=== PATIENT | female | born 1945 | race Caucasian/White ===

== ENCOUNTER 2019-05-13 11:31 | Outpatient (CLI) | payer MEDICARE, BC ==
--- NOTE | 2019-05-13 12:04 | ULT ---
EXAM: US Gallbladder RUQ CLINICAL HISTORY: Right upper quadrant pain x2 days. COMPARISON: None. FINDINGS: Pancreas: Obscured by bowel gas Liver:Increased echogenicity of the liver may be due to hepatic steatosis or hepatocellular disease. Limited evaluation for hepatic masses and intrahepatic biliary dilatation. Right hepatic lobe measures 14.8 cm Portal vein: Patent with appropriate directional flow Gallbladder: Echogenic focus with shadowing, compatible with a gallstone. Gallbladder wall is thicken ed measuring 0.56 cm. No pericholecystic fluid. Baez's sign:Negative Bile ducts: Obscured due to bowel gas Right kidney: No hydronephrosis. Right kidney measures 10.4 cm cm in length. IMPRESSION: 1. Increased echogenicity of the liver which may be due to hepatic steatosis or hepatocellular diseas e. If there is concern for hepatic masses, liver mass protocol CT can be performed 2. Cholelithiasis with gallbladder wall thickening. Despite a negative Baez's sign, the possibility of cholecystitis cannot be excluded. HIDA scan is recommended. 2. Obscured common bile duct
== END 2019-05-13 11:32 | disposition home or self-care (01) ==
LOC: ULT 11:31
PROVIDERS: ATTEND Physician Assistant
DX: R10.11 Right upper quadrant pain (principal); K80.20 Calculus of gallbladder without cholecystitis without obstruction; K82.8 Other specified diseases of gallbladder; K83.8 Other specified diseases of biliary tract
CPT/HCPCS: 76705

== ENCOUNTER 2019-05-13 12:28 | Inpatient (IN) | payer MEDICARE, BC ==
[2019-05-13 13:26] LABS: #Eosinphils 0.1 thou/uL (0.0-0.7); #Lymphocytes 1.1 thou/uL (1.20-3.40); #Monocytes 0.8 thou/uL (0.11-0.59); #Neutrophils 11.3 thou/uL (1.40-6.50); %Basophils 0.1 % (0.0-1.0); %Eosinophils 0.4 % (0.0-10.0); %Lymphocytes 8.5 % (21.0-51.0); %Monocytes 6.1 % (0.0-10.0); %Neutrophils 84.8 % (42.0-75.0); Hemoglobin 15.2 g/dL (12.0-16.0); Mean Corpuscular HGB CONC 33.6 g/dL (32.0-36.0); Mean Corpuscular Hemoglobin 31.1 pg (27.0-31.0); Mean Corpuscular Volume 92.5 fL (78.0-98.0); Mean Platelet Volume 6.6 fL (7.4-10.4); Platelet Count 394 thou/uL (130-400); RBC Distribution Width 13.5 % (11.5-14.5); Red Blood Cell (RBC) Count 4.87 mill/uL (4.20-5.40); White Blood Cell (WBC) Count 13.3 thou/uL (4.8-10.8)
[2019-05-13 13:40] LABS: ALT (SGPT) 8 U/L (8-55); AST (SGOT) 11 U/L (5-34); Albumin 4.3 g/dL (3.4-4.8); Alkaline Phosphatase 100 U/L (40-150); Anion Gap 13 mmol/L (10-20); BUN (Urea Nitrogen) 9 mg/dL (9.8-20.1); Bilirubin, Total 0.8 mg/dL (0.2-1.2); Calc. Creatinine Clearance 0 mL/min (70-130); Carbon Dioxide 31 mmol/L (23-31); Chloride 89 mmol/L (98-107); Estimated GFR-MDRD 56; Globulin 2.9 g/dL (2.4-3.5); Glucose 147 mg/dL (83-110); Potassium 3.9 mmol/L (3.5-5.1); Protein, Total 7.2 g/dL (6.0-8.3); Sodium 129 mmol/L (136-145)
[2019-05-13 13:42] LABS: Calcium 12.6 mg/dL (7.8-10.44)
--- NOTE | 2019-05-13 16:36 | RAD ---
XR Chest 1 View Portable History: High white blood count Comparison: None. Findings: The lungs are clear. No pneumothorax or effusion. Cardiac silhouette and mediastinal contou rs are within normal limits. Impression: No acute intrathoracic abnormality.
[2019-05-13 19:30] VITALS: BMI 31.9
[2019-05-13] MEDS: Sodium Chloride 0.9% 1,000 ML IV SCH (19:47)
[2019-05-13] MEDS: Sodium Chloride 1 GM TAB PO SCH (20:09)
[2019-05-13] MEDS ORDERED: diphenhydrAMINE 25 MG CAP PO SCH (21:00)
[2019-05-13] MEDS ORDERED: Acetaminophen 325 MG TAB PO PRN (22:58)
[2019-05-13] MEDS ORDERED: Ondansetron ODT 4 MG TAB PO PRN (22:58)
--- NOTE | 2019-05-13 23:08 | PDOC.EVN ---
Event Note - Event Note Event Note: H&P dictated [id number]
--- NOTE | 2019-05-14 03:22 | HP ---
CHIEF COMPLAINT: Abnormal labs. HISTORY OF PRESENT ILLNESS: Ms. Pike is a 74-year-old female with past medical history of hypertension, hyperlipidemia, presented to the emergency room with abdominal pain for the last 2 days. The patient also describes fullness. The patient was sent by PCP because of elevated WBC count and calcium level. The patient reported cold sweats and tiredness. The patient's last bowel movement was 2 days ago. Workup in the emergency room, the patient was found to be hypercalcemic with a calcium level of 12.6, also she was found to have elevated WBC count of 15.3. As per the patient, she had an ultrasound done at an outside facility earlier today and was told that she had cholelithiasis. The patient has been admitted to the hospital for further management. PAST MEDICAL HISTORY: 1. Hypertension. 2. Hyperlipidemia. PAST SURGICAL HISTORY: Reviewed as elsewhere in the chart. SOCIAL HISTORY: Denies smoking, alcohol drinking, or drug abuse. HOME MEDICATIONS: Please see home medication reconciliation form for updated medications. ALLERGIES: ALLERGIC TO SHELLFISH AND IODINE. REVIEW OF SYSTEMS: Review of 14 systems is negative except what is mentioned in history of present illness. PHYSICAL EXAMINATION: GENERAL: The patient is awake, alert, does not appear to be in acute distress. VITAL SIGNS: Blood pressure , pulse is 82, respiratory rate is 16, pulse oximetry 97% on room air. HEAD AND NECK: Normocephalic, atraumatic. Neck is supple. No JVD. CHEST: Clear. Bilateral air entry. HEART: S1, S2. Regular. ABDOMEN: Soft with mild epigastric tenderness. Bowel sounds present. NEUROLOGIC: Awake, alert, oriented x3. PSYCH: Normal mood. EXTREMITIES: No clubbing or cyanosis. LABORATORY DATA: As mentioned above in the history of present illness. Chest x-ray, no acute findings. ASSESSMENT AND PLAN: A 74-year-old female who presented to her primary care office, she was seen by PA and had lab work done, was found to be hypercalcemic, elevated WBC count, also imaging studies were done and it was reported that she had ? cholelithiasis. 1. Acute hyperglycemia. 2. Abdominal pain. 3. Cholelithiasis ? symptomatic ? 4. Hypertension. 5. Hyperlipidemia. PLAN: 1. We will admit. 2. IV fluid hydration. 3. Monitor calcium levels, may need further workup regarding the etiology of hypercalcemia, which can be done as an outpatient. 4. If her abdominal pain persists, may need to consult Surgery for evaluation of symptomatic cholelithiasis. 5. Try to get the report of the ultrasound which was done in outside facility. 6. Reconcile home medications. 7. DVT prophylaxis, early ambulation/SCD. 8. Expected length of stay at least 1 midnight if patient is stable. Job ID: [id number]
[2019-05-14 05:41] LABS: #Basophils 0.1 thou/uL (0.0-0.2); #Eosinphils 0.2 thou/uL (0.0-0.7); #Lymphocytes 1.3 thou/uL (1.20-3.40); #Monocytes 1.3 thou/uL (0.11-0.59); #Neutrophils 8.3 thou/uL (1.40-6.50); %Basophils 0.5 % (0.0-1.0); %Eosinophils 1.8 % (0.0-10.0); %Lymphocytes 11.5 % (21.0-51.0); %Monocytes 11.7 % (0.0-10.0); %Neutrophils 74.4 % (42.0-75.0); Hemoglobin 12.8 g/dL (12.0-16.0); Mean Corpuscular HGB CONC 34.2 g/dL (32.0-36.0); Mean Corpuscular Hemoglobin 31.9 pg (27.0-31.0); Mean Corpuscular Volume 93.1 fL (78.0-98.0); Mean Platelet Volume 6.4 fL (7.4-10.4); Platelet Count 308 thou/uL (130-400); RBC Distribution Width 13.5 % (11.5-14.5); Red Blood Cell (RBC) Count 4.01 mill/uL (4.20-5.40); White Blood Cell (WBC) Count 11.1 thou/uL (4.8-10.8)
[2019-05-14] MEDS: Sodium Chloride 0.9% 1,000 ML IV SCH ×2 (05:41→11:16)
[2019-05-14 06:15] LABS: ALT (SGPT) 7 U/L (8-55); AST (SGOT) 9 U/L (5-34); Albumin 3.4 g/dL (3.4-4.8); Alkaline Phosphatase 72 U/L (40-150); Anion Gap 10 mmol/L (10-20); BUN (Urea Nitrogen) 9 mg/dL (9.8-20.1); Bilirubin, Total 0.6 mg/dL (0.2-1.2); Calc. Creatinine Clearance 96 mL/min (70-130); Calcium 9.8 mg/dL (7.8-10.44); Carbon Dioxide 27 mmol/L (23-31); Chloride 97 mmol/L (98-107); Estimated GFR-MDRD 79; Globulin 2.2 g/dL (2.4-3.5); Glucose 86 mg/dL (83-110); Potassium 3.6 mmol/L (3.5-5.1); Protein, Total 5.6 g/dL (6.0-8.3); Sodium 130 mmol/L (136-145)
[2019-05-14] MEDS: Sodium Chloride 1 GM TAB PO SCH ×3 (08:27→20:13)
[2019-05-14] MEDS: Famotidine/PF 20 mg/2ml Vial SLOW IVP SCH ×2 (08:27→19:24)
[2019-05-14] MEDS ORDERED: Prevnar 13-Val Conj/PF 0.5 ML SYRINGE IM ONE (09:00)
[2019-05-14] MEDS ORDERED: cefOXitin 2 GM in Sodium Chloride 0.9% 100 ML IVPB SCH (10:15)
--- NOTE | 2019-05-14 13:19 | PDOC.HOSPP ---
- Subjective Encounter Date: 05/14/19 Encounter Time: 09:45 Subjective: has right upper quadrant pain, no nausea or chest pain - Objective Vital Signs & Weight: Vital Signs (12 hours) Temp Pulse Resp BP BP Pulse Ox 05/14/19 12:00 98.2 F 84 16 132/68 96 05/14/19 08:00 98 05/14/19 07:53 98.7 F 83 18 108/66 05/14/19 04:00 98.3 F 76 16 102/55 L 92 L Weight Weight 192 lb I&O: 05/13/19 05/14/19 05/15/19 06:59 06:59 06:59 Intake Total 1120 200 Balance 1120 200 Result Diagrams: 05/14/19 05:16 05/14/19 05:16 Hospitalist ROS - Medication Medications: Active Medications Generic Name Dose Route Start Last Admin Trade Name Freq PRN Reason Stop Dose Admin Famotidine 20 mg 05/14/19 09:00 05/14/19 08:27 Pepcid SLOW IVP 20 mg Q12HR LETTY Administration Sodium Chloride 1,000 mls @ 125 mls/hr 05/14/19 10:15 05/14/19 11:16 Normal Saline 0.9% IV Not Given .Q8H LETTY Sodium Chloride 1 gm 05/13/19 21:00 05/14/19 08:27 Sodium Chloride PO 1 gm TID LETTY Administration - Exam General Appearance: NAD, awake alert Eye: PERRL, anicteric sclera ENT: no oropharyngeal lesions, moist mucosa Neck: supple, no JVD Heart: RRR, no murmur Respiratory: no wheezes, no rales Gastrointestinal: soft, non-distended, normal bowel sounds, tender to palpation Extremities: no cyanosis, no edema Neurological: cranial nerve grossly intact, no focal deficits Psychiatric: normal affect, A&O x 3 Hosp A/P (1) Acute calculous cholecystitis Code(s): K80.00 - CALCULUS OF GALLBLADDER W ACUTE CHOLECYST W/O OBSTRUCTION Status: Acute (2) Hypercalcemia Code(s): E83.52 - HYPERCALCEMIA Status: Resolved (3) Dehydration Code(s): E86.0 - DEHYDRATION Status: Resolved (4) Hyponatremia Code(s): E87.1 - HYPO-OSMOLALITY AND HYPONATREMIA Status: Acute (5) HTN (hypertension) Code(s): I10 - ESSENTIAL (PRIMARY) HYPERTENSION Status: Chronic Qualifiers: Hypertension type: essential hypertension Qualified Code(s): I10 - Essential (primary) hypertension (6) Dyslipidemia Code(s): E78.5 - HYPERLIPIDEMIA, UNSPECIFIED Status: Chronic - Plan hemostable is npo for jerald singh today by gentle iv hydration electrolytes are stable may tx to medsurg floor post op she ambulates by herself, can climb 2 flight of stairs with min sob but no chest pain
[2019-05-14] MEDS ORDERED: Glycopyrrolate 0.2 MG/ML 5 ML SYRINGE ONE (14:17)
[2019-05-14] MEDS ORDERED: ePHEDrine 50 MG/ML VIAL ONE (14:17)
[2019-05-14] MEDS ORDERED: Ketorolac Tromethamine 30 MG/ML VIAL ONE (14:17)
[2019-05-14] MEDS ORDERED: Ondansetron PF 4 MG/2 ML Vial ONE (14:17)
[2019-05-14] MEDS ORDERED: PROPOFOL 200 MG/20 ML VIAL ONE (14:17)
[2019-05-14] MEDS ORDERED: PHENYLEPHRINE-NS 100 MCG/ML 10 ML SYRINGE ONE (14:17)
[2019-05-14] MEDS ORDERED: Rocuronium Bromide 10 MG/ML (10ML VIAL) ONE (14:17)
[2019-05-14] MEDS ORDERED: Lidocaine 1% PF 5 ML VIAL ONE (14:17)
[2019-05-14] MEDS ORDERED: Dexamethasone 20 MG/5 ML VIAL ONE (14:17)
--- NOTE | 2019-05-14 14:56 | CON ---
DATE OF CONSULTATION: CHIEF COMPLAINT: Right upper quadrant abdominal pain. HISTORY OF PRESENT ILLNESS: This is a 74-year-old female, who reports a 2-day history of midepigastric and right upper quadrant pain. No radiation. She was found to have elevated white blood count and an ultrasound showing gallstones. The also found that her calcium was elevated, but it is back down to normal. She denies nausea or vomiting. She was having some constipation, but she had a small bowel movement this morning. No previous episodes. PAST MEDICAL HISTORY: Hypertension, hyperlipidemia. PAST SURGICAL HISTORY: Hysterectomy, appendectomy. MEDICATIONS: 1. Lovastatin. 2. Hydrochlorothiazide. 3. Multivitamins. 4. Aspirin. ALLERGIES: SHE IS ALLERGIC TO SHELLFISH AND IODINE. SOCIAL HISTORY: She is single, retired. No tobacco or alcohol. FAMILY HISTORY: Noncontributory. PHYSICAL EXAMINATION: VITAL SIGNS: Temperature 98.7, pulse 83, and blood pressure 108/66. GENERAL: She is awake, alert, in minimal distress. HEENT: No jaundice. LUNGS: Clear. HEART: Regular rate and rhythm. ABDOMEN: Soft. She is tender in the right upper quadrant. Positive Baez's sign. EXTREMITIES: Unremarkable. LABORATORY DATA: Her white count today is 11.1, H and H of 12 and 37, platelet count 308. Electrolytes; her sodium is 130, chloride 97, BUN 9, calcium is normal at 9.8. Her LFTs are normal. Ultrasound shows an echogenic foci in the neck of the gallbladder consistent with a gallstone with wall thickening, no pericholecystic fluid. ASSESSMENT: Acute cholecystitis. PLAN: Laparoscopic cholecystectomy. CONSENT: I have discussed planned procedure as well as risk of bleeding, infection, injury to bile duct, injury to bowel, need to open. She understands, gives informed consent. Job ID: [id number]
[2019-05-14] MEDS ORDERED: cefOXitin 2 GM VIAL ONE (15:11)
[2019-05-14] MEDS ORDERED: Sodium Chloride 0.9% 100 ML ONE (15:11)
[2019-05-14] MEDS ORDERED: Bupivacaine/Epinephrine 0.25% 30 ML VIAL ONE (16:10)
[2019-05-14] MEDS ORDERED: Fentanyl 100 MCG/2 ML VIAL ONE ×3 (16:19→18:02)
[2019-05-14] MEDS ORDERED: Promethazine HCl 25 MG/ML VIAL IM PRN ×3 (16:57→17:40)
[2019-05-14] MEDS ORDERED: Promethazine HCl 25 MG/ML VIAL SLOW IVP PRN ×2 (16:57→17:40)
[2019-05-14] MEDS ORDERED: Ondansetron HCl/PF 4 MG/2 ML Vial IVP PRN ×2 (16:57→17:40)
[2019-05-14] MEDS ORDERED: Morphine 4 MG/ML VIAL SLOW IVP PRN (17:23)
[2019-05-14] MEDS ORDERED: hydrALAZINE 20 MG/ML VIAL SLOW IVP PRN (17:23)
[2019-05-14] MEDS ORDERED: Dextrose 5% in Water 1,000 ML IV PRN (17:23)
[2019-05-14] MEDS ORDERED: Dextrose 50% Abboject 50 ML SYRINGE SLOW IVP PRN (17:23)
[2019-05-14] MEDS ORDERED: Calcium Carbonate 500 MG ChewTAB PO PRN (17:23)
[2019-05-14] MEDS ORDERED: Ondansetron PF 4 MG/2 ML Vial IVP PRN (17:23)
[2019-05-14] MEDS ORDERED: Morphine 2 MG/ML SYRINGE SLOW IVP PRN (17:23)
[2019-05-14] MEDS ORDERED: Mag-Al 1200 mg/1200 mg/30 ML UDCUP PO PRN (17:23)
[2019-05-14] MEDS ORDERED: HYDROcodone/Acetaminophen 10/325 mg Tablet PO PRN (17:23)
[2019-05-14] MEDS: Ketorolac Tromethamine 30 MG/ML VIAL IVP SCH (18:36)
[2019-05-14] MEDS: HYDROcodone/Acetaminophen 10/325 mg Tablet PO PRN (19:30)
[2019-05-14] MEDS: Famotidine 20 MG TAB PO SCH (20:13)
[2019-05-14] MEDS ORDERED: Famotidine/PF 20 mg/2ml Vial SLOW IVP SCH (21:00)
[2019-05-14] MEDS: cefOXitin 2 GM in Sodium Chloride 0.9% 100 ML IVPB SCH (23:59)
[2019-05-15 05:21] LABS: #Lymphocytes 0.6 thou/uL (1.20-3.40); #Monocytes 0.6 thou/uL (0.11-0.59); #Neutrophils 11.3 thou/uL (1.40-6.50); %Basophils 0.1 % (0.0-1.0); %Eosinophils 0.1 % (0.0-10.0); %Neutrophils 89.8 % (42.0-75.0); Hemoglobin 12.8 g/dL (12.0-16.0); Mean Corpuscular HGB CONC 34.2 g/dL (32.0-36.0); Mean Corpuscular Hemoglobin 32.2 pg (27.0-31.0); Mean Corpuscular Volume 94.1 fL (78.0-98.0); Mean Platelet Volume 6.7 fL (7.4-10.4); Platelet Count 331 thou/uL (130-400); RBC Distribution Width 13.5 % (11.5-14.5); Red Blood Cell (RBC) Count 3.97 mill/uL (4.20-5.40); White Blood Cell (WBC) Count 12.5 thou/uL (4.8-10.8)
[2019-05-15 05:55] LABS: ALT (SGPT) 33 U/L (8-55); AST (SGOT) 43 U/L (5-34); Albumin 3.4 g/dL (3.4-4.8); Alkaline Phosphatase 69 U/L (40-150); Anion Gap 10 mmol/L (10-20); BUN (Urea Nitrogen) 11 mg/dL (9.8-20.1); Bilirubin, Total 0.4 mg/dL (0.2-1.2); Calc. Creatinine Clearance 84 mL/min (70-130); Calcium 9.2 mg/dL (7.8-10.44); Carbon Dioxide 27 mmol/L (23-31); Chloride 99 mmol/L (98-107); Estimated GFR-MDRD 68; Globulin 2.3 g/dL (2.4-3.5); Glucose 127 mg/dL (83-110); Lipase Less than 4 U/L (8-78); Potassium 4.2 mmol/L (3.5-5.1); Protein, Total 5.7 g/dL (6.0-8.3); Sodium 132 mmol/L (136-145)
[2019-05-15] MEDS: Ketorolac Tromethamine 30 MG/ML VIAL IVP SCH ×4 (06:25→17:44)
[2019-05-15] MEDS: Sodium Chloride 0.9% 1,000 ML IV SCH ×3 (06:26→23:38)
[2019-05-15] MEDS: cefOXitin 2 GM in Sodium Chloride 0.9% 100 ML IVPB SCH ×2 (06:26→16:26)
[2019-05-15] MEDS: Famotidine 20 MG TAB PO SCH ×2 (09:08→20:40)
[2019-05-15] MEDS: Enoxaparin Sodium 40 MG/0.4 ML SYRINGE SC SCH (09:08)
[2019-05-15] MEDS: Sodium Chloride 1 GM TAB PO SCH (09:09)
--- NOTE | 2019-05-15 09:47 | PRG ---
DATE OF SERVICE: 05/15/2019 SUBJECTIVE: The patient says she feels better. She is tolerating full liquids well. Pain is improved. No nausea or vomiting. OBJECTIVE: VITAL SIGNS: On exam, temperature 98, pulse 72, and blood pressure 102/71. GENERAL: She looks good. ABDOMEN: Soft and nondistended. Drain output is 70 mL from the AUDREY. It is serosanguineous. DIAGNOSTIC DATA: The cultures show white cells, no organisms, still pending. Laboratory; white count is 12.5, H and H of 12 and 37, and platelet count 331. Electrolytes; glucose is 127, AST of 43. Otherwise, LFTs okay. ASSESSMENT: Acute cholecystitis. PLAN: Continue IV antibiotics. Probably can be discharged tomorrow. Job ID: [id number]
--- NOTE | 2019-05-15 12:19 | PDOC.HOSPP ---
- Subjective Encounter Date: 05/15/19 Encounter Time: 09:45 Subjective: no nausea or vomiting, is tolerating liq diet, wants solid food is wanting to amb in hallway, RN will assist her shortly has mild surg abd site pain - Objective Vital Signs & Weight: Vital Signs (12 hours) Temp Pulse Resp BP Pulse Ox 05/15/19 11:22 97.8 F 78 18 111/75 94 L 05/15/19 08:00 93 L 05/15/19 07:14 98 F 72 14 102/71 93 L 05/15/19 03:57 98.1 F 75 16 100/66 92 L Weight Weight 200 lb 7 oz I&O: 05/14/19 05/15/19 05/16/19 06:59 06:59 06:59 Intake Total 1120 1800 Output Total 70 Balance 1120 1730 Result Diagrams: 05/15/19 04:23 05/15/19 04:23 Hospitalist ROS - Medication Medications: Active Medications Generic Name Dose Route Start Last Admin Trade Name Freq PRN Reason Stop Dose Admin Hydrocodone Bitart/Acetaminophen 1 tab 05/14/19 17:23 05/14/19 19:30 Grover 10/325 PO 1 tab Q6H PRN Administration Moderate Pain (4-6) Enoxaparin Sodium 40 mg 05/15/19 09:00 05/15/19 09:08 Lovenox SC 40 mg 0900 LETTY Administration Famotidine 20 mg 05/14/19 21:00 05/15/19 09:08 Pepcid PO 20 mg Q12HR LETTY Administration Sodium Chloride 1,000 mls @ 125 mls/hr 05/14/19 10:15 05/15/19 06:26 Normal Saline 0.9% IV 1,000 mls .Q8H LETTY Administration Cefoxitin Sodium 2 gm/ Sodium 100 mls @ 100 mls/hr 05/14/19 23:00 05/15/19 06 :26 Chloride IVPB 100 mls 0700,1500,2300 LETTY Administration Ketorolac Tromethamine 15 mg 05/14/19 18:00 05/15/19 06:25 Toradol IVP 05/19/19 18:01 15 mg Q6HR LETTY Administration Sodium Chloride 1 gm 05/13/19 21:00 05/15/19 09:09 Sodium Chloride PO 1 gm TID LETTY Administration - Exam General Appearance: NAD, awake alert Eye: PERRL, anicteric sclera ENT: no oropharyngeal lesions, moist mucosa Neck: supple, no JVD Heart: RRR, no murmur Respiratory: no wheezes, no rales Gastrointestinal: soft, non-distended, normal bowel sounds Extremities: no cyanosis, no edema Neurological: cranial nerve grossly intact, no focal deficits Psychiatric: normal affect, A&O x 3 Hosp A/P (1) Acute calculous cholecystitis Code(s): K80.00 - CALCULUS OF GALLBLADDER W ACUTE CHOLECYST W/O OBSTRUCTION Status: Acute (2) Hypercalcemia Code(s): E83.52 - HYPERCALCEMIA Status: Resolved (3) Dehydration Code(s): E86.0 - DEHYDRATION Status: Resolved (4) Hyponatremia Code(s): E87.1 - HYPO-OSMOLALITY AND HYPONATREMIA Status: Acute (5) HTN (hypertension) Code(s): I10 - ESSENTIAL (PRIMARY) HYPERTENSION Status: Chronic Qualifiers: Hypertension type: essential hypertension Qualified Code(s): I10 - Essential (primary) hypertension (6) Dyslipidemia Code(s): E78.5 - HYPERLIPIDEMIA, UNSPECIFIED Status: Chronic - Plan hemostable had lap samantha on 05/[address]Mason baird adv diet per gen surg adv, dc iv fluids if tolerating oral diet electrolytes are stable, is on cefoxitin q8h dc plan in am per gen surg adv to ambulate in hallway as tolerated
[2019-05-15] MEDS: HYDROcodone/Acetaminophen 10/325 mg Tablet PO PRN (20:40)
[2019-05-16] MEDS: Ketorolac Tromethamine 30 MG/ML VIAL IVP SCH ×2 (01:05→06:15)
[2019-05-16] MEDS: cefOXitin 2 GM in Sodium Chloride 0.9% 100 ML IVPB SCH ×2 (01:06→06:15)
[2019-05-16] MEDS: Sodium Chloride 0.9% 1,000 ML IV SCH (06:21)
[2019-05-16 07:44] VITALS: BP 128/77; TEMP 97.4
[2019-05-16] MEDS: Enoxaparin Sodium 40 MG/0.4 ML SYRINGE SC SCH (08:37)
[2019-05-16] MEDS: Famotidine 20 MG TAB PO SCH (08:37)
--- NOTE | 2019-05-16 10:49 | OP ---
DATE OF PROCEDURE: 05/14/2019 PREOPERATIVE DIAGNOSIS: Acute cholecystitis. PROCEDURE PERFORMED: Laparoscopic cholecystectomy. INDICATIONS: A 74-year-old female, presented with 2-day history of right upper quadrant pain to the back associated with nausea. Ultrasound showed thickened gallbladder wall and gallstones. FINDINGS: She had a distended inflamed gallbladder, small-caliber cystic duct, large stones. DESCRIPTION OF PROCEDURE: After informed consent was obtained, the patient was taken to the operating room, given general endotracheal anesthesia, placed in the supine position. Abdomen was prepped and draped in usual fashion. Local anesthesia was infiltrated subcutaneously and deep. A supraumbilical incision was performed. Subcu was divided sharply. The fascia was grasped and 2 stay sutures of 0 Vicryl were placed in each side of midline. Midline was incised. Digital palpation revealed no local adhesions. A blunt 12 mm trocar was inserted. Pneumoperitoneum was created to a pressure of 15 mmHg. A 0-degree laparoscope was inserted under direct vision. Three 5 mm ports were placed subcostally. The gallbladder was distended and inflamed. It was aspirated and 80 mL of bile removed. This was sent for culture. The gallbladder was grasped and advanced superiorly. The peritoneum was dissected distally to expose the cystic duct artery in critical view. Clips were placed on both the duct and artery and the gallbladder was removed from its fossa utilizing electrocautery. It was placed in Endosac, removed from the abdomen in the Endosac. Hemostasis was achieved utilizing electrocautery as well as Adalgisa powder. A drain was placed in the subhepatic space and brought out through the lateral-most incision. Hemostasis was assured. Trocars and retractors were removed. The fascia was closed with interrupted 0 Vicryl suture. The skin was closed with interrupted 4-0 Rapide. Dermabond was applied. The patient tolerated the procedure well, transferred to Recovery in good condition. Sponge and needle counts were verified correct x2. Job ID: [id number]
--- NOTE | 2019-05-16 19:10 | DIS ---
DATE OF ADMISSION: 05/13/2019 DATE OF DISCHARGE: 05/16/2019 DISCHARGE DISPOSITION: Home. PRIMARY DISCHARGE DIAGNOSIS: Acute cholecystitis with cholelithiasis, status post laparoscopic cholecystectomy done on 05/14/[address] Manning. SECONDARY DISCHARGE DIAGNOSES: 1. Severe dehydration with hypercalcemia and hyponatremia on admission resolved. 2. Hypertension. 3. Dyslipidemia. PROCEDURES DONE DURING HOSPITALIZATION: The patient has had laparoscopic cholecystectomy done by Dr. Manning on 05/14/2019. Chest x-ray done showed no acute intrathoracic abnormality. Abdominal ultrasound done on the day of admission showed echogenic focus with shadowing compatible with gallstone, gallbladder wall thickening. No pericholecystic fluid. Common bile duct was obscured on the ultrasound. Gallbladder fluid culture, Gram stain showed no organisms. Culture is negative at 36 hours. Had a white count of 14 on the day of admission, had calcium of 12.8 with albumin of 4.7 and sodium of 130 on the day of admission. Discharge calcium was 9.2, albumin is 3.4 on the day of discharge, lipase was 9. DISCHARGE MEDICATIONS: 1. Lovastatin 40 mg p.o. at bedtime. 2. Losartan 50 mg p.o. daily. 3. Augmentin 875 mg p.o. twice daily for another 5 days. 4. Motrin p.r.n. for pain. 5. Hydrochlorothiazide 25 mg p.o. daily. ALLERGIES: ALLERGIC TO IODINE, SHELLFISH, AND SULFA. INPATIENT CONSULT: Dr. Manning for General Surgery. DISCHARGE PLAN: The patient to follow up with Dr. Manning in 2 weeks and primary care physician in 1 week. She will need a repeat metabolic panel through her primary care physician in 1 week. BRIEF COURSE DURING HOSPITALIZATION: The patient initially got admitted on the with complaints of right upper quadrant abdominal pain. Her initial ultrasound was suspicious for cholelithiasis with cholecystitis. The patient has had consultation with Dr. Manning for General Surgery. She has had laparoscopic cholecystectomy done. Postprocedure, the patient's right upper quadrant abdominal pain is completely resolved. She had multiple electrolyte abnormalities on admission, likely from [id number] dehydration versus hydrochlorothiazide use. Her electrolytes were corrected. The patient needs to have a repeat metabolic panel in a week or 10 days to see if she has repeat electrolyte abnormalities, then she needs to discontinue hydrochlorothiazide per primary care physician's advice. Please note I have seen and examined the patient on the day of discharge. She has been cleared by Dr. Manning for discharge today. Job ID: [id number]
== END 2019-05-16 13:18 | disposition home or self-care (01) | DRG 418 ==
LOC: ERS 12:28 → 2NO 16:40 → SURG A 05-14 15:36
PROVIDERS: ADMIT Internal Medicine; ATTEND Internal Medicine
PROC: 0FT44ZZ Resection of Gallbladder, Percutaneous Endoscopic Approach (ICD-10-PCS; principal; 2019-05-14)
DX: K80.00 Calculus of gallbladder with acute cholecystitis without obstruction (principal); E87.1 Hypo-osmolality and hyponatremia; E86.0 Dehydration; E83.52 Hypercalcemia; R73.9 Hyperglycemia, unspecified; I10 Essential (primary) hypertension; E78.5 Hyperlipidemia, unspecified; Z88.2 Allergy status to sulfonamides; Z88.8 Allergy status to other drugs, medicaments and biological substances; Z91.013 Allergy to seafood; Z90.710 Acquired absence of both cervix and uterus; Z90.49 Acquired absence of other specified parts of digestive tract
CPT/HCPCS: 36415; 36416; 71045; 76705; 80053; 83690; 85025; 87070; 87205; 88304; 93005; 96360; 96361; J0694; J1100; J1650; J1885; J2001; J2405; J2704; J3010; J3490; Q0163; S0028

== ENCOUNTER 2021-10-17 11:24 | Outpatient (CLI) | payer MEDICARE, BC | END 2021-10-17 11:25 | disposition home or self-care (01) | LOC: SCSRAD 11:24 | PROVIDERS: ATTEND Family Medicine | DX: R10.9 Unspecified abdominal pain (principal) | CPT/HCPCS: 74018 ==